=== PATIENT | male | born 1965 | race Asian ===

== ENCOUNTER 2025-03-23 09:28 | Emergency (ER) | payer OTHER ==
[~2025-03-23] VITALS: Ht 162.6 cm; Wt 70.8 kg
[2025-03-23] MEDS ORDERED: KETOROLAC TROMETHAMINE 15 MG/ML VIAL ONE (13:17)
[2025-03-23] MEDS: KETOROLAC TROMETHAMINE 15 MG/ML VIAL IV ONE (13:24)
[2025-03-23] MEDS ORDERED: NAPR-1164 PO (13:55)
[2025-03-23 15:07] VITALS: BP 137/74; TEMP 98.2; O2SAT 98
== END 2025-03-23 15:07 | disposition home or self-care (01) ==
LOC: ER 09:30
DX: S20.212A Contusion of left front wall of thorax, initial encounter (principal); S40.012A Contusion of left shoulder, initial encounter; I10 Essential (primary) hypertension; E11.9 Type 2 diabetes mellitus without complications; W10.0XXA Fall (on)(from) escalator, initial encounter; Y93.89 Activity, other specified; Y92.89 Other specified places as the place of occurrence of the external cause; Y99.8 Other external cause status
CPT/HCPCS: 99285; 96374; 73060; 71100; 73030; J1885